=== PATIENT | male | born 1950 | race Caucasian/White ===

== ENCOUNTER 2022-01-17 16:20 | Emergency (ER) | payer MEDICARE ==
[~2022-01-17] VITALS: Ht 180.3 cm; Wt 81.8 kg
[2022-01-17 17:27] LABS: HEMOGLOBIN 16.1 g/dl (14.0-17.9); MEAN CORPUSCULAR HGB CONC 33.5 g/dL (33.0-36.5); RED BLOOD COUNT 4.73 X10'6 (4.70-6.10)
[2022-01-17 17:29] LABS: BASOPHILS % (AUTO) 0.2 % (0-1); EOSINOPHILS % (AUTO) 0.2 % (0-6); LYMPHOCYTES # (AUTO) 1.3 X10'3 (1.1-4.8); LYMPHOCYTES % (AUTO) 10.2 % (21-51); MEAN CORPUSCULAR VOLUME 101.4 FL (78-98); MONOCYTES # (AUTO) 0.8 X10'3 (0-0.9); MONOCYTES % (AUTO) 6.5 % (2-12); NEUTROPHILS # (AUTO) 10.4 X10'3 (1.8-7.7); NEUTROPHILS % (AUTO) 82.9 % (42-75); PLATELET COUNT 308 X10'3 (140-440); RED CELL DISTRIBUTION WIDTH 13.3 % (11.5-14.5); WHITE BLOOD COUNT 12.5 X10'3 (4.5-11.0)
[2022-01-17 17:38] LABS: ALANINE AMINOTRANSFERASE 25 U/L (12-78); ALBUMIN 4.3 G/DL (3.4-5.0); ALBUMIN/GLOBULIN RATIO 1.3 (1.1-1.5); ALKALINE PHOSPHATASE 79 IU/L (46-116); ANION GAP 10 (8-16); ASPARTATE AMINO TRANSFERASE 19 U/L (10-37); BILIRUBIN,TOTAL 0.8 MG/DL (0.1-1.0); BLOOD UREA NITROGEN 10 MG/DL (7-18); BUN/CREATININE RATIO 9.3 (5.4-32.0); CALCIUM 9.1 MG/DL (8.5-10.1); CHLORIDE 99 MMOL/L (99-107); CREATININE 1.08 MG/DL (0.60-1.10); GLUCOSE 143 MG/DL (70-104); POTASSIUM 3.5 MMOL/L (3.5-5.1); SODIUM 135 MMOL/L (135-145); TOTAL CARBON DIOXIDE 26.1 MMOL/L (24-32); TOTAL PROTEIN 7.6 G/DL (6.4-8.2); eGFR 67 ML/MIN
[2022-01-17] MEDS ORDERED: iohexol 350MG/ML 100ml bottle IV ONE (19:29)
[2022-01-17 20:08] VITALS: BP 167/91
[2022-01-17 21:41] LABS: CLARITY,URINE CLEAR (Clear); COLOR,URINE YELLOW (Yellow); GLUCOSE, URINE NEGATIVE (Neg); KETONES,URINE 40 mg/dl (Neg); LEUKOCYTE ESTERASE ,URINE NEGATIVE (Neg); NITRITES, URINE NEGATIVE (Neg); OCCULT BLOOD,URINE TRACE-INTACT (Neg); PH,URINE 6.5 (4.8-8.0); PROTEIN,URINE NEGATIVE (Neg); UROBILINOGEN,URINE 0.2 E.U/dL (0.2-1.0)
[2022-01-17 21:44] LABS: UA COLLECTION TYPE CLN CATCH MIDSTREAM
[2022-01-17 22:19] LABS: RBC,URINE 0-2 /HPF (0-2); WBC,URINE NONE SEEN /HPF (0-4)
[2022-01-17 22:20] LABS: BACTERIA,URINE NONE SEEN /HPF (Neg); MUCUS STRANDS NONE SEEN /LPF (Neg); SQUAMOUS EPITHELIAL CELL,UR FEW /LPF (FEW)
== END 2022-01-17 22:38 | disposition home or self-care (01) ==
LOC: ER 16:21
DX: R10.9 Unspecified abdominal pain (principal); M54.9 Dorsalgia, unspecified; R63.0 Anorexia; F12.10 Cannabis abuse, uncomplicated
CPT/HCPCS: 36415; 71045; 71275; 74174; 80053; 81001; 83880; 84484; 85025; 93005; 99285; J3490; Q9967

== ENCOUNTER → 2023-06-11 | Outpatient (CLI) | payer MEDICARE | END | disposition home or self-care (01) | LOC: VAS 10:32 | PROVIDERS: ATTEND Family Medicine | DX: I78.1 Nevus, non-neoplastic (principal) | CPT/HCPCS: 93970 ==